=== PATIENT | male | born 1990 | race Caucasian/White ===

== ENCOUNTER 2019-09-08 14:48 | Emergency (ER) | payer MEDICAID ==
[~2019-09-08] VITALS: Ht 175.3 cm; Wt 85.3 kg
[2019-09-08 15:05] VITALS: BP 143/89
--- NOTE | 2019-09-08 15:07 | NUR ---
PT TO CRIST[facility] WALLACE
--- NOTE | 2019-09-08 15:15 | NUR ---
PT GOING TO XRAY FROM LOBBY VIA WHEELCHAIR
--- NOTE | 2019-09-08 15:42 | NUR ---
PT AMBULATED TO BED CHAIR C.
--- NOTE | 2019-09-08 15:55 | NUR ---
TONA FANG EVALUATING PT
--- NOTE | 2019-09-08 15:56 | NUR ---
C/O L FOOT PAIN X 3 WEEKS AND REQUESTING ANTIBIOTICS RX AT THIS TIME. ERYTHEMA TO PLANTAR SURFACE OF LEFT FOOT AND TO LT 4TH DIGIT. NAD AT THIS TIME. PMH- DENIES
[2019-09-08 16:15] VITALS: BP 143/89
== END 2019-09-08 16:12 | disposition home or self-care (01) ==
LOC: MED 14:48
DX: L03.116 Cellulitis of left lower limb (principal)
CPT/HCPCS: 73630; 99283